=== PATIENT | male | born 1975 | race Caucasian/White ===

== ENCOUNTER 2023-11-28 13:17 | Outpatient (OUT) | payer OTHER, SELFPAY ==
--- NOTE | 2023-11-28 15:18 | P.CN_ITS ---
Consult Note: HPI Data of Consult Patient: new to practice Consult date: 11/28/23 Requesting Physician: Nighat Vyas MD Primary Care Provider: [facility] Consult Narrative Reason for consult: bilateral lower extremity phantom pain Narrative: 48yom who presents for evaluation. has had bilateral BKA, and now endorses phantom pain in bilateral lower extremities. has engaged in physical therapy and provider directed home exercises >6 weeks for this, with minimal benefit. uses gabapentin, which is helpful. uses suboxone for history of heroin and opioid abuse. denies adverse med side effects. cc:: CC: Nighat Vyas MD Review of Systems ROS Status of ROS 10 or more systems reviewed and unremark able except as noted in history and below Meds Home Medications and Allergies Home Medications Medication Instructions Recorded Confirmed Type gabapentin 800 mg tablet 800 mg PO TID 11/28/23 11/28/23 History hydrochlorothiazide 25 mg tablet 25 mg PO DAILY 11/28/23 11/28/23 History lisinopril 40 mg tablet 40 mg PO DAILY 11/28/23 11/28/23 History nifedipine 90 mg tablet,extended 90 mg PO DAILY 11/28/23 11/28/23 History release omeprazole 20 mg capsule,delayed 20 mg PO DAILY 11/28/23 11/28/23 History release paroxetine HCl 20 mg tablet 20 mg PO DAILY 11/28/23 11/28/23 History rivaroxaban 15 mg tablet (Xarelto) 15 mg PO DAILY 11/28/23 11/28/23 History tamsulosin 0.4 mg capsule 0.4 mg PO DAILY 11/28/23 11/28/23 History tizanidine 4 mg tablet 4 mg PO BID PRN muscle spasticity 11/28/23 11/28/23 History Allergies Allergy/AdvReac Type Severity Reaction Status Date / Time No Known Drug Allergies Allergy Verified 11/28/23 14:39 Exam Narrative Exam Narrative: Psych-alert and oriented x 3. Attentive and appropriate, constitutionally normal, displays normal mood and affect per situation. There are no obvious deficits in memory, reasoning, or intellect.? Skin-no obvious rashes, bruising, erythema noted to the patient's area of pain.? Extremities- extremities are warm. Below knee amputations noted in both lower extremities. Lumbar-tenderness to palpation noted in the lumbar spine and paraspinal musculature. Pain is not elicited with flexion, extension, and lateral rotation of the lumbar spine. Range of motion is not diminished with these motions. Facet loading maneuvers are negative.? Strength-noted to be unremarkable Sensory-no notable sensory deficits in the bilateral lower extremities to touch or pinprick in all dermatomal distributions with the exception to decreased sensation to the bilateral stumps. Coordination remains intact.? Gait remains antalgic. Assessment and Plan Assessment and Plan (1) Phantom pain after amputation of lower extremity: Plan 48yom who presents for evaluation. failed physical and medical modalities, as noted. given history of amputations and persistent phantom pain, will have patient undergo bilateral lumbar sympathetic nerve blocks x2 under fluoroscopic guidance. will be done with conscious sedation. he is in agreement. meds reviewed. will have him trial tizanidine 4mg tid prn. non-opioid given suboxone use and history of drug abuse. follow up after procedure.
== END 2023-11-28 13:18 | disposition home or self-care (01) ==
LOC: PM 13:19
PROVIDERS: Visit Provider Anesthesiology
DX: R52 Pain, unspecified (principal)
CPT/HCPCS: G0463